=== PATIENT | male | born 1935 | race Caucasian/White ===

== ENCOUNTER 2018-01-26 11:12 | Emergency (ER) | payer MEDICARE, BC ==
--- NOTE | 2018-01-26 11:39 | EDM.PDOC ---
ED HPI GENERAL MEDICAL PROBLEM - General Chief Complaint: Cardiovascular Problem Stated Complaint: FROM [facility] Time Seen by Provider: 01/26/18 11:33 Source of Information: Reports: Patient, Family History Limitations: Reports: No Limitations - History of Present Illness INITIAL COMMENTS - FREE TEXT/NARRATIVE: pt arrived because of an irregular rapid rhythm that was noted at [facility]. He was seeing oncology for his CLL. Onset: Other (unknown) Duration: Hour(s): Location: Reports: Other (pt feels well but he is clearly having a irradtic rhythm. ) Associated Symptoms: Reports: No Other Symptoms Denies Pain Score (Numeric/FACES): 0 - Related Data Allergies Allergy/AdvReac Type Severity Reaction Status Date / Time No Known Allergies Allergy Verified 01/26/18 11:28 Home Meds: Home Meds Tylenol 325 - 650 mg PO ASDIRECTED PRN 10/02/13 [History] PARoxetine [Paxil] 40 mg PO DAILY 08/21/16 [History] Tamsulosin [Tamsulosin 24 Hr] 0.4 mg PO DAILY 08/21/16 [History] metFORMIN [Glucophage] 500 mg PO BIDMEALS 08/21/16 [History] Beta-Carotene(A) w/C & E/Min [Prosight] 1 tab PO DAILY 01/26/18 [History] Cholecalciferol (Vitamin D3) [Vitamin D3] 1,000 unit PO DAILY 01/26/18 [History] Cyanocobalamin (Vitamin B12) [Vitamin B12] 1,000 mcg PO DAILY 01/26/18 [History] LORazepam [Ativan] 0.25 mg PO DAILY PRN 01/26/18 [History] Memantine [Namenda] 1 tab PO BID 01/26/18 [History] Past Medical History HEENT History: Reports: Impaired Vision Cardiovascular History: Reports: High Cholesterol, Hypertension Genitourinary History: Reports: BPH Endocrine/Metabolic History: Reports: Diabetes, Type II - Infectious Disease History Infectious Disease History: Reports: Chicken Pox, Measles, Mumps, Shingles - Past Surgical History GI Surgical History: Reports: Hernia Repair/Other Musculoskeletal Surgical History: Reports: Shoulder Surgery Social & Family History - Tobacco Use Smoking Status *Q: Never Smoker - Recreational Drug Use Recreational Drug Use: No ED ROS GENERAL - Review of Systems Review Of Systems: See Below Constitutional: Reports: No Symptoms HEENT: Reports: No Symptoms Respiratory: Reports: No Symptoms Cardiovascular: Reports: Palpitations, Other (pt is having runs of rapid wide complex rhythms that do not reveal any symptoms. He was at oncology today and it was noted that he was having runs of a rapid rhythm) GI/Abdominal: Reports: No Symptoms : Reports: No Symptoms Musculoskeletal: Reports: No Symptoms Skin: Reports: No Symptoms Neurological: Reports: No Symptoms, Other (pt has an known history of dementia. ) Psychiatric: Reports: No Symptoms ED EXAM, GENERAL - Physical Exam Exam: See Below Free Text/Narrative:: pt does not feel when his heart is rapid. He has not had any chest pain. He is not sob. He was out shoveling snow yesterday. Exam Limited By: No Limitations General Appearance: Alert, No Apparent Distress, Other (pupils are equal and reactive. ) Ears: Normal TMs Nose: Normal Inspection Throat/Mouth: Normal Inspection Head: Atraumatic Neck: Normal Inspection Respiratory/Chest: No Respiratory Distress Cardiovascular: Irregularly Irregular, Other (pt has a irratic rhythm. ) GI/Abdominal: Soft, Non-Tender (Male) Exam: Deferred Rectal (Males) Exam: Deferred Back Exam: Normal Inspection Extremities: Normal Inspection Neurological: Alert, Oriented, Normal Cognition, Other (pt describes himself as forgetful He has a known history of dementia. ) Course - Vital Signs Last Recorded V/S: Last Vital Signs Temp 35.9 C 01/26/18 11:20 Pulse 60 01/26/18 11:20 Resp 12 01/26/18 11:20 BP 145/85 H 01/26/18 11:20 Pulse Ox 96 01/26/18 11:20 - Orders/Labs/Meds Orders: Active Orders 24 hr Category Date Time Status EKG Documentation Completion [RC] ASDIRECTED Care 01/26/18 11:27 Active GLUCOSE POC LAB TO COLLECT [POC] Stat Lab 01/26/18 12:35 Ordered EKG 12 Lead [EK] Routine Ther 01/26/18 11:27 Ordered Labs: Laboratory Tests 01/26/18 01/26/18 Range/Units 11:32 11:32 WBC 43.9 H* (4.5-11.0) K/uL RBC 3.40 L (4.30-5.90) M/uL Hgb 11.9 L (12.0-15.0) g/dL Hct 35.1 L (40.0-54.0) % MCV 103 H (80-98) fL MCH 35 H (27-31) pg MCHC 34 (32-36) % Plt Count 137 L (150-400) K/uL Neut % (Auto) 11 L (36-66) % Lymph % (Auto) 86 H (24-44) % [place] % (Auto) 3 (2-6) % Eos % (Auto) 0 L (2-4) % Baso % (Auto) 0 (0-1) % Sodium 143 (140-148) mmol/L Potassium 4.7 (3.6-5.2) mmol/L Chloride 106 (100-108) mmol/L Carbon Dioxide 27 (21-32) mmol/L Anion Gap 10.0 (5.0-14.0) mmol/L BUN 21 H (7-18) mg/dL Creatinine 1.3 (0.8-1.3) mg/dL Est Cr Clr Drug Dosing 43.12 mL/min Estimated GFR (MDRD) 53 L (>60) Glucose 102 (74-106) mg/dL Calcium 9.0 (8.5-10.1) mg/dL Total Bilirubin 0.7 (0.2-1.0) mg/dL AST 21 (15-37) U/L ALT 14 (12-78) U/L Alkaline Phosphatase 79 (46-116) U/L Troponin I < 0.017 (0.000-0.056) ng/mL Total Protein 7.2 (6.4-8.2) g/dL Albumin 4.2 (3.4-5.0) g/dL Globulin 3.0 (2.3-3.5) g/dL Albumin/Globulin Ratio 1.4 (1.2-2.2) - Re-Assessments/Exams Free Text/Narrative Re-Assessment/Exam: 01/26/18 12:37 pt has normal electrolytes nd no definite reason for the runs of vtach. He is not having symptoms when he has the vtaCH. hE HAS NOT HAD SYNCOPAL EPISODES OR EPISODES WHERE HE GETS SWEATY. Departure - Departure Time of Disposition: 12:39 Disposition: DC/Tfer to Acute Hospital 02 Reason for Transfer *Q: Primary PCI Indicated Condition: Fair Clinical Impression: Ventricular tachycardia, CLL (chronic lymphocytic leukemia) Referrals: Seth Mckenzie PA [Primary Care Provider] - Forms: ED Department Discharge Care Plan Goals: TRANSFER TO [facility]. - My Orders Last 24 Hours: My Active Orders 01/26/18 11:27 EKG Documentation Completion [RC] ASDIRECTED EKG 12 Lead [EK] Routine 01/26/18 12:35 GLUCOSE POC LAB TO COLLECT [POC] Stat - Assessment/Plan Last 24 Hours: My Active Orders 01/26/18 11:27 EKG Documentation Completion [RC] ASDIRECTED EKG 12 Lead [EK] Routine 01/26/18 12:35 GLUCOSE POC LAB TO COLLECT [POC] Stat
--- NOTE | 2018-01-26 11:48 | CR ---
Mild cardiomegaly. No focal consolidation. No increased vascular congestion. Faint nodular density wi thin the left lung base may indicate a nipple shadow only but would confirm with a nipple marke and f ollow-up.
[2018-01-26 13:37] VITALS: BP 139/112
== END 2018-01-26 15:10 ==
LOC: JP.ED 11:12
DX: I47.2 Ventricular tachycardia (principal); C91.10 Chronic lymphocytic leukemia of B-cell type not having achieved remission; E78.00 Pure hypercholesterolemia, unspecified; I10 Essential (primary) hypertension; E11.9 Type 2 diabetes mellitus without complications; Z79.899 Other long term (current) drug therapy; Z79.84 Long term (current) use of oral hypoglycemic drugs
CPT/HCPCS: 36415; 71045; 71045-26; 80053; 82962; 84484; 85025; 93005; 99285-25

== ENCOUNTER 2021-07-01 12:58 | Emergency (ER) | payer MEDICARE, BC ==
[2021-07-01 15:29] VITALS: BP 103/68; PULSE 73
--- NOTE | 2021-07-01 15:42 | EDM.PDOC ---
ED HPI GENERAL MEDICAL PROBLEM - General Chief Complaint: Laceration Stated Complaint: FALL/HEAD Time Seen by Provider: 07/01/21 15:30 Source of Information: Reports: Patient, Family - History of Present Illness INITIAL COMMENTS - FREE TEXT/NARRATIVE: 86-year-old male gets dizzy from time to time and today apparently fell down hitting the crown of his head posteriorly. It bled extensively and he came in. There was no loss of consciousness. He does know to complain of pain in his head or neck. He says he is otherwise doing relatively well but bled extensively. Nurse applied pressure dressing on arrival. - Related Data Allergies Allergy/AdvReac Type Severity Reaction Status Date / Time atorvastatin Allergy unknown Verified 07/01/21 13:39 Penicillins Allergy Other Verified 07/01/21 13:39 simvastatin Allergy unknown Verified 07/01/21 13:39 Hmg-coa-r inhibitors Allergy unknown Uncoded 07/01/21 13:39 Home Meds: Home Meds Tamsulosin [Tamsulosin 24 Hr] 0.4 mg PO DAILY 08/21/16 [History] metFORMIN [Glucophage] 500 mg PO BIDMEALS 08/21/16 [History] Beta-Carotene(A) w/C & E/Min [Prosight] 1 tab PO DAILY 01/26/18 [History] Cholecalciferol (Vitamin D3) [Vitamin D3] 1,000 unit PO DAILY 01/26/18 [History] Cyanocobalamin (Vitamin B12) [Vitamin B12] 1,000 mcg PO DAILY 01/26/18 [History] LORazepam [Ativan] 0.25 mg PO DAILY PRN 01/26/18 [History] Multivit with Minerals/Lutein [Vision Plus Lutein Vitamin] 1 each PO DAILY 10/06/18 [History] PARoxetine [Paxil] 20 mg PO DAILY 10/06/18 [History] Acetaminophen [Tylenol] 500 mg PO BEDTIME 07/01/21 [History] Aspirin [Halfprin] 81 mg PO ASDIRECTED 07/01/21 [History] Past Medical History HEENT History: Reports: Impaired Vision Cardiovascular History: Reports: High Cholesterol, Hypertension, Stents Respiratory History: Reports: Sleep Apnea Gastrointestinal History: Reports: None Genitourinary History: Reports: BPH Musculoskeletal History: Reports: None Neurological History: Reports: Alzheimers Disease, Other (See Below) Other Neuro History: dementia Psychiatric History: Reports: Alzheimers Disease, Anxiety Endocrine/Metabolic History: Reports: Diabetes, Type II Hematologic History: Reports: Other (See Below) Other Hematologic History: leukemia Oncologic (Cancer) History: Reports: Leukemia - Infectious Disease History Infectious Disease History: Reports: Chicken Pox, Measles, Mumps, Shingles - Past Surgical History Head Surgeries/Procedures: Reports: None HEENT Surgical History: Reports: Cataract Surgery Cardiovascular Surgical History: Reports: Coronary Artery Stent Respiratory Surgical History: Reports: None GI Surgical History: Reports: Hernia Repair/Other Endocrine Surgical History: Reports: None Neurological Surgical History: Reports: None Musculoskeletal Surgical History: Reports: Shoulder Surgery Oncologic Surgical History: Reports: None Dermatological Surgical History: Reports: None Social & Family History - Tobacco Use Tobacco Use Status *Q: Never Tobacco User Second Hand Smoke Exposure: No - Caffeine Use Caffeine Use: Reports: Coffee - Recreational Drug Use Recreational Drug Use: No ED ROS GENERAL - Review of Systems Review Of Systems: Comprehensive ROS is negative, except as noted in HPI. ED EXAM, SKIN/RASH Exam: See Below Text/Narrative:: Alert cooperative 86-year-old male sitting on the gurney not appearing to be in great distress but does have blood from a laceration of the top of his head. Compression of the skull does not cause him any pain. He can seem to see me okay I can hear no facial drooping or deficits. He has no neck has a supple nature and range of motion Chest appears nontender to compression abdomen appears to be soft Extremities appear to be all range of motion normal No neurologic deficits are noted Head exam again on the crown over the midline posteriorly shows about a six 5 cm gaping laceration which is bleeding. Course - Vital Signs Text/Narrative:: Procedures would have been either Xylocaine and suturing or stapling. It appears that this is amenable to stapling and the patient is agreeable to that Accordingly the crown of the head is cleansed thoroughly with saline and 4 x 4's and washrag's. Starting at the anterior and with a large staple gun debra are placed sequentially pulling the skin together and one placed posteriorly with a 1 cm area with a bit of clots subcutaneously that makes it difficult to pull out skin together. Rather than open it and extract it and flush it I elect to note he has it is as bleeding has now been contained and put a pressure dressing on and have him follow-up in a couple days in the doctor's office or return here for recheck Last Recorded V/S: Last Vital Signs Temp 36.6 C 07/01/21 13:42 Pulse 73 07/01/21 15:28 Resp 14 07/01/21 13:42 BP 103/68 07/01/21 15:28 Pulse Ox 96 07/01/21 15:28 Departure - Departure Time of Disposition: 16:00 Disposition: Home, Self-Care 01 Clinical Impression: Laceration of scalp - Discharge Information Instructions: Laceration Care, Adult Referrals: Robert Stanford MD [Primary Care Provider] - Sepsis Event Note (ED) - Evaluation Sepsis Screening Result: No Definite Risk - Focused Exam Vital Signs: Vital Signs Temp Pulse Resp BP Pulse Ox 07/01/21 15:28 73 103/68 96 07/01/21 13:42 36.6 C 70 14 96/59 L 94 L 07/01/21 13:40 36.6 C 70 14 96/59 L 94 L
== END 2021-07-01 15:57 | disposition home or self-care (01) ==
LOC: JP.ED 12:58
DX: S01.01XA Laceration without foreign body of scalp, initial encounter (principal); I10 Essential (primary) hypertension; N40.0 Benign prostatic hyperplasia without lower urinary tract symptoms; I25.2 Old myocardial infarction; G30.9 Alzheimer's disease, unspecified; F02.80 Dementia in other diseases classified elsewhere, unspecified severity, without behavioral disturbance, psychotic disturbance, mood disturbance, and anxiety; E11.9 Type 2 diabetes mellitus without complications; Z95.5 Presence of coronary angioplasty implant and graft; Z88.8 Allergy status to other drugs, medicaments and biological substances; Z88.0 Allergy status to penicillin; Z79.82 Long term (current) use of aspirin; Z79.84 Long term (current) use of oral hypoglycemic drugs; Z79.899 Other long term (current) drug therapy; W22.8XXA Striking against or struck by other objects, initial encounter; Y92.009 Unspecified place in unspecified non-institutional (private) residence as the place of occurrence of the external cause
CPT/HCPCS: 12032; 99283-25

== ENCOUNTER 2022-08-29 00:06 | Emergency (ER) | payer MEDICARE, BC ==
[2022-08-29 00:25] VITALS: BP 141/81; PULSE 72
[2022-08-29] MEDS ORDERED: traZODone 50 MG Tab PO ONE (00:53)
== END 2022-08-29 01:05 | disposition home or self-care (01) ==
LOC: JP.ED 00:06
DX: G30.9 Alzheimer's disease, unspecified (principal); F02.83 Dementia in other diseases classified elsewhere, unspecified severity, with mood disturbance; F41.0 Panic disorder [episodic paroxysmal anxiety]; F51.05 Insomnia due to other mental disorder; F99 Mental disorder, not otherwise specified; E78.00 Pure hypercholesterolemia, unspecified; I10 Essential (primary) hypertension; E11.9 Type 2 diabetes mellitus without complications; N40.0 Benign prostatic hyperplasia without lower urinary tract symptoms; Z88.0 Allergy status to penicillin; Z88.8 Allergy status to other drugs, medicaments and biological substances; Z95.5 Presence of coronary angioplasty implant and graft; Z79.84 Long term (current) use of oral hypoglycemic drugs; Z79.899 Other long term (current) drug therapy
CPT/HCPCS: 99283; 99284; A9270